=== PATIENT | male | born 1965 | race Asian ===

== ENCOUNTER → 2021-03-14 | Outpatient (CLI) | payer BC ==
[2021-03-14 08:35] LABS: URIC ACID 6.3 mg/dL (3.5-7.2)
[2021-03-14 08:42] LABS: CHOLESTEROL/HDL RATIO 3.8
[2021-03-15 03:12] LABS: HEMOGLOBIN A1C 5.6 % (4.8-5.6)
== END ==
LOC: LAB 07:32
PROVIDERS: ATTEND Family Medicine
DX: Z12.5 Encounter for screening for malignant neoplasm of prostate (principal); I10 Essential (primary) hypertension; M10.00 Idiopathic gout, unspecified site
CPT/HCPCS: 36415; 80061; 83036; 84153; 84550; G0103